=== PATIENT | male | born 1940 | race Caucasian/White ===

== ENCOUNTER 2019-06-03 05:09 | Emergency (ER) | payer MEDICARE ==
[~2019-06-03] VITALS: Ht 172.7 cm; Wt 77.0 kg
[2019-06-03] MEDS ORDERED: ACETAMINOPHEN 325MG TABLET PO ONE (06:45)
[2019-06-03 07:11] VITALS: BP 165/101
== END 2019-06-03 07:12 | disposition home or self-care (01) ==
LOC: ER 05:09
DX: M54.5 Low back pain (principal); M79.601 Pain in right arm; V44.5XXA Car driver injured in collision with heavy transport vehicle or bus in traffic accident, initial encounter; Y93.89 Activity, other specified; Y92.410 Unspecified street and highway as the place of occurrence of the external cause; R03.0 Elevated blood-pressure reading, without diagnosis of hypertension
CPT/HCPCS: 99283

== ENCOUNTER 2020-10-24 03:44 | Inpatient (IN) | payer MEDICARE, MEDICAID ==
[2020-10-24] VITALS (47 sets, daily range): BP systolic 77–134; BP diastolic 54–102
[~2020-10-24] VITALS: Ht 154.9 cm; Wt 73.1 kg
[2020-10-24] MEDS ORDERED: MORPHINE SULFATE 4 MG/ML CPJ (NOT FOR IM USE) IV STA (05:02)
[2020-10-24] MEDS ORDERED: ONDANSETRON HCL 4MG/2ML INJ IV STA (05:02)
[2020-10-24] MEDS ORDERED: PIPERACILLIN/TAZ 3.375G PREMIX 50 ML IV ONE (05:30)
[2020-10-24] MEDS ORDERED: LORAZEPAM 2MG/ML CPJ IV ONE (05:30)
[2020-10-24] MEDS ORDERED: VANCOMYCIN 1 G PREMIX 200 ML IV ONE (05:30)
[2020-10-24] MEDS ORDERED: SODIUM CHLORIDE 0.9% 1000ML BAG (SEPSIS BOLUS) IV ONE (05:30)
[2020-10-24 05:37] LABS: HEMATOCRIT. 42.1 % (42.0-52.0); MEAN CORPUSCULAR HEMOGLOBIN 29.5 pg (28.0-32.0); MEAN CORPUSCULAR VOLUME 88.9 fL (80.0-94.0); MEAN PLATELET VOLUME 7.5 fl (7.4-10.4); PLATELET 176 x1000/uL (130-400); RED BLOOD CELL COUNT 4.74 mill/uL (4.7-6.1); RED CELL DISTRIBUTION WIDTH 14.3 % (11.6-14.6)
[2020-10-24 05:47] LABS: CHLORIDE 104 mEq/L (98-107)
[2020-10-24 05:52] LABS: INR 1.2; PROTHROMBIN TIME 12.9 sec (9.6-11.0)
[2020-10-24 06:35] LABS: NUCLEATED RED BLOOD CELLS 1 /100 WBC
[2020-10-24] MEDS ORDERED: IOHEXOL-300 100 ML BOTTLE ONE (06:35)
[2020-10-24 06:36] LABS: PLATELET ESTIMATE NORMAL
[2020-10-24] MEDS ORDERED: POTASSIUM CHLORIDE INJ 40 MEQ in DEXT 5% WATER 250 ML IV SCH (07:00)
[2020-10-24 08:02] LABS: CLARITY URINE CLEAR (CLEAR); COLOR URINE YELLOW (YELLOW); KETONES URINE NEGATIVE (NEGATIVE); LEUKOCYTE ESTERASE URINE 2+ (NEGATIVE); NITRITE URINE NEGATIVE (NEGATIVE); OCCULT BLOOD URINE 2+ (NEGATIVE); PH URINE 5.5 (4.5-8.0); PROTEIN URINE 1+ (NEGATIVE); UROBILINOGEN URINE 0.2 E.U./dL (0.2-1.0)
[2020-10-24 08:33] LABS: *BARBITURATES SCREEN URINE NEGATIVE (NEGATIVE); *BENZODIAZEPINES SCREEN URINE NEGATIVE (NEGATIVE); *COCAINE SCREEN URINE NEGATIVE (NEGATIVE); CANNABINOID URINE SCREEN NEGATIVE (NEGATIVE); METHADONE URINE SCREEN NEGATIVE (NEGATIVE); OPIATES URINE SCREEN NEGATIVE (NEGATIVE); PHENCYCLIDINE URINE SCREEN NEGATIVE (NEGATIVE)
[2020-10-24 08:36] LABS: *AMPHETAMINES SCREEN URINE NEGATIVE (NEGATIVE)
[2020-10-24] MEDS ORDERED: NOREPINEPHRINE 8 MG in SODIUM CHLORIDE 0.9% 242 ML IV PRN ×2 (09:00→09:15)
[2020-10-24] MEDS ORDERED: LIDOCAINE HCL 1% 20ML VIAL (Pyxis) INJ ONE (11:06)
[2020-10-24] MEDS ORDERED: CEFTRIAXONE 1 G PREMIX 50 ML IV SCH (12:00)
[2020-10-24] MEDS ORDERED: NOREPINEPHRINE 8 MG in DEXT 5% WATER 242 ML IV PRN (12:30)
[2020-10-24] MEDS ORDERED: CEFTRIAXONE 1,000 MG in DEXTROSE 5% WATER 50 ML IV SCH (12:46)
[2020-10-24] MEDS: CEFTRIAXONE 1,000 MG in DEXTROSE 5% WATER 50 ML IV SCH (13:42)
[2020-10-24] MEDS: SODIUM CHLORIDE 0.9% 1,000 ML IV SCH (13:42)
[2020-10-24] MEDS: NOREPINEPHRINE 8 MG in DEXT 5% WATER 242 ML IV PRN ×2 (14:24→23:53)
[2020-10-24] MEDS ORDERED: LORAZEPAM 2MG/ML CPJ IV NR (22:15)
[2020-10-24] MEDS ORDERED: HALOPERIDOL LACTATE 5MG/ML VIAL IM NR (22:15)
[2020-10-25] VITALS (98 sets, daily range): BP systolic 90–163; BP diastolic 20–98
[2020-10-25] MEDS: MIDODRINE HCL 5MG TABLET PO SCH ×4 (00:03→17:08)
[2020-10-25] MEDS: SODIUM CHLORIDE 0.9% 1,000 ML IV SCH ×2 (01:08→14:10)
[2020-10-25] MEDS: NOREPINEPHRINE 8 MG in DEXT 5% WATER 242 ML IV PRN ×4 (04:59→12:00)
[2020-10-25] MEDS ORDERED: LORAZEPAM 2MG/ML CPJ IV PRN (08:00)
[2020-10-25 09:53] LABS: HEMATOCRIT. 38.9 % (42.0-52.0); HEMOGLOBIN. 12.8 g/dL (14.0-18.0); MEAN CORPUSCULAR HEMOGLOBIN 29.6 pg (28.0-32.0); MEAN CORPUSCULAR VOLUME 90.4 fL (80.0-94.0); MEAN PLATELET VOLUME 8.9 fl (7.4-10.4); PLATELET 75 x1000/uL (130-400); RED BLOOD CELL COUNT 4.31 mill/uL (4.7-6.1); RED CELL DISTRIBUTION WIDTH 15.2 % (11.6-14.6)
[2020-10-25 11:11] LABS: PLATELET ESTIMATE DECREASED
[2020-10-25 13:06] LABS: HIV SCREEN 4G Non Reactive (Non Reactive)
[2020-10-25 13:45] LABS: BG BASE EXCESS -8.5 mmol/L (-2.0-2.0); BG CARBOXYHEMOGLOBIN 0.3 % (0.5-1.5); BG DEOXYHEMOGLOBIN 6.9 % (0.0-5.0); BG FRACTION INSPIRED OXYGEN 40; BG HCO3 ACT 15.2 mmol/L (22.0-26.0); BG OXYGEN SATURATION 93.1 % (92.0-98.5); BG OXYHEMOGLOBIN 92.8 % (94.0-97.0); BG PCO2 27.1 mmHg (35.0-45.0); BG PH 7.368 (7.350-7.450); BG PO2 63.3 mmHg (75.0-100.0); BG SAMPLE SITE RIGHT RADIAL; BG TOTAL HEMOGLOBIN 13.3 g/dL (12.0-18.0); BG VENT MODE NASAL CANNULA
[2020-10-25] MEDS: LORAZEPAM 2MG/ML CPJ IV PRN ×2 (14:34→20:15)
[2020-10-25] MEDS: CEFTRIAXONE 1,000 MG in DEXTROSE 5% WATER 50 ML IV SCH (14:34)
[2020-10-25] MEDS ORDERED: MORPHINE SULFATE 2 MG/ML CPJ (NOT FOR IM USE) IV PRN (22:45)
[2020-10-25] MEDS: ACETAMINOPHEN 325MG TABLET PO PRN (22:55)
[2020-10-26] VITALS (96 sets, daily range): BP systolic 80–180; BP diastolic 53–165
[2020-10-26] MEDS: NOREPINEPHRINE 8 MG in DEXT 5% WATER 242 ML IV PRN (00:38)
[2020-10-26] MEDS: LORAZEPAM 2MG/ML CPJ IV PRN (01:56)
[2020-10-26] MEDS: MORPHINE SULFATE 2 MG/ML CPJ (NOT FOR IM USE) IV PRN ×2 (04:50→11:33)
[2020-10-26] MEDS: SODIUM CHLORIDE 0.9% 1,000 ML IV SCH (04:50)
[2020-10-26 05:48] LABS: HEMATOCRIT. 35.1 % (42.0-52.0); HEMOGLOBIN. 11.4 g/dL (14.0-18.0); MEAN CORPUSCULAR VOLUME 89.5 fL (80.0-94.0); MEAN PLATELET VOLUME 9.4 fl (7.4-10.4); PLATELET 59 x1000/uL (130-400); RED BLOOD CELL COUNT 3.92 mill/uL (4.7-6.1); RED CELL DISTRIBUTION WIDTH 15.2 % (11.6-14.6)
[2020-10-26] MEDS: MIDODRINE HCL 5MG TABLET PO SCH ×3 (09:45→17:06)
[2020-10-26] MEDS ORDERED: FUROSEMIDE 20MG/2ML VIAL IVP SCH (10:45)
[2020-10-26 11:30] LABS: PLATELET ESTIMATE MARKEDLY DECREASED
[2020-10-26] MEDS: IPRATROPIUM/ALBUTEROL 0.5-3(2.5)MG/3ML NEB HHN PRN ×2 (12:24→21:14)
[2020-10-26 13:51] LABS: BG BASE EXCESS -6.8 mmol/L (-2.0-2.0); BG CARBOXYHEMOGLOBIN 0.3 % (0.5-1.5); BG DEOXYHEMOGLOBIN 1.8 % (0.0-5.0); BG FRACTION INSPIRED OXYGEN 40; BG HCO3 ACT 18.9 mmol/L (22.0-26.0); BG METHEMOGLOBIN 0.1 % (0.0-1.5); BG OXYGEN SATURATION 98.2 % (92.0-98.5); BG OXYHEMOGLOBIN 97.8 % (94.0-97.0); BG PCO2 38.6 mmHg (35.0-45.0); BG PH 7.308 (7.350-7.450); BG PO2 114.2 mmHg (75.0-100.0); BG SAMPLE SITE LEFT RADIAL; BG TOTAL HEMOGLOBIN 12.3 g/dL (12.0-18.0)
[2020-10-26] MEDS: CEFTRIAXONE 1,000 MG in DEXTROSE 5% WATER 50 ML IV SCH (14:18)
[2020-10-27] VITALS (114 sets, daily range): BP systolic 90–188; BP diastolic 54–145
[2020-10-27] MEDS: LORAZEPAM 2MG/ML CPJ IV PRN ×3 (01:52→17:10)
[2020-10-27] MEDS: IPRATROPIUM/ALBUTEROL 0.5-3(2.5)MG/3ML NEB HHN PRN (04:40)
[2020-10-27 05:40] LABS: HEMATOCRIT. 36.7 % (42.0-52.0); MEAN CORPUSCULAR HEMOGLOBIN 29.3 pg (28.0-32.0); MEAN CORPUSCULAR VOLUME 89.6 fL (80.0-94.0); MEAN PLATELET VOLUME 9.5 fl (7.4-10.4); PLATELET 65 x1000/uL (130-400); RED BLOOD CELL COUNT 4.09 mill/uL (4.7-6.1); RED CELL DISTRIBUTION WIDTH 15.3 % (11.6-14.6)
[2020-10-27 07:59] LABS: PLATELET ESTIMATE DECREASED
[2020-10-27] MEDS: MIDODRINE HCL 5MG TABLET PO SCH ×3 (09:00→17:00)
[2020-10-27] MEDS: CLONIDINE 0.1MG TABLET PO PRN (13:07)
[2020-10-27] MEDS: IPRATROPIUM/ALBUTEROL 0.5-3(2.5)MG/3ML NEB HHN SCH ×2 (13:25→20:44)
[2020-10-27] MEDS: CEFTRIAXONE 1,000 MG in DEXTROSE 5% WATER 50 ML IV SCH (15:18)
[2020-10-27] MEDS: MORPHINE SULFATE 2 MG/ML CPJ (NOT FOR IM USE) IV PRN (19:10)
[2020-10-28] VITALS (84 sets, daily range): BP systolic 102–185; BP diastolic 59–123
[2020-10-28] MEDS: CLONIDINE 0.1MG TABLET PO PRN ×3 (00:31→18:20)
[2020-10-28] MEDS: IPRATROPIUM/ALBUTEROL 0.5-3(2.5)MG/3ML NEB HHN SCH ×6 (00:41→20:27)
[2020-10-28] MEDS: LORAZEPAM 2MG/ML CPJ IV PRN ×4 (02:04→23:05)
[2020-10-28 05:30] LABS: BASOPHILS % 0.6 % (0.0-2.0); EOSINOPHILS % 0.9 % (0.0-5.0); HEMATOCRIT. 38.2 % (42.0-52.0); HEMOGLOBIN. 12.5 g/dL (14.0-18.0); LYMPHOCYTES % 12.2 % (20.0-50.0); MEAN CORPUSCULAR HEMOGLOBIN 29.2 pg (28.0-32.0); MEAN CORPUSCULAR VOLUME 89.2 fL (80.0-94.0); MEAN PLATELET VOLUME 9.2 fl (7.4-10.4); MONOCYTES % 6.9 % (2.0-8.0); NEUTROPHILS % 79.4 % (40.0-76.0); PLATELET 62 x1000/uL (130-400); RED BLOOD CELL COUNT 4.29 mill/uL (4.7-6.1)
[2020-10-28 05:40] LABS: CHLORIDE 116 mEq/L (98-107)
[2020-10-28] MEDS: MIDODRINE HCL 5MG TABLET PO SCH ×3 (09:00→17:00)
[2020-10-28] MEDS ORDERED: FUROSEMIDE 40MG/4ML VIAL IVP NR (12:00)
[2020-10-28] MEDS: METOPROLOL TARTRATE 25MG TABLET PO SCH ×2 (12:10→20:49)
[2020-10-28] MEDS: CEFTRIAXONE 1,000 MG in DEXTROSE 5% WATER 50 ML IV SCH (14:38)
[2020-10-28] MEDS: POTASSIUM CHLORIDE 20MEQ TABLET SR PO SCH (23:04)
[2020-10-29] VITALS (24 sets, daily range): BP systolic 105–171; BP diastolic 60–124
[2020-10-29] MEDS: IPRATROPIUM/ALBUTEROL 0.5-3(2.5)MG/3ML NEB HHN SCH ×7 (00:29→21:08)
[2020-10-29 05:29] LABS: HEMATOCRIT. 37.7 % (42.0-52.0); HEMOGLOBIN. 12.2 g/dL (14.0-18.0); MEAN CORPUSCULAR HEMOGLOBIN 28.9 pg (28.0-32.0); MEAN PLATELET VOLUME 9.8 fl (7.4-10.4); PLATELET 94 x1000/uL (130-400); RED BLOOD CELL COUNT 4.24 mill/uL (4.7-6.1); RED CELL DISTRIBUTION WIDTH 14.8 % (11.6-14.6)
[2020-10-29 05:35] LABS: CHLORIDE 112 mEq/L (98-107)
[2020-10-29 07:14] LABS: PLATELET ESTIMATE DECREASED
[2020-10-29] MEDS: MIDODRINE HCL 5MG TABLET PO SCH (09:00)
[2020-10-29] MEDS: CLONIDINE 0.1MG TABLET PO PRN ×2 (09:02→15:32)
[2020-10-29] MEDS: POTASSIUM CHLORIDE 20MEQ TABLET SR PO SCH (11:22)
[2020-10-29] MEDS: METOPROLOL TARTRATE 25MG TABLET PO SCH ×2 (11:24→20:43)
[2020-10-29] MEDS: CEFTRIAXONE 1,000 MG in DEXTROSE 5% WATER 50 ML IV SCH (15:32)
[2020-10-29] MEDS: DOCUSATE SODIUM SUGAR FREE 100MG/10ML UDC PO SCH (20:42)
[2020-10-29] MEDS: LORAZEPAM 2MG/ML CPJ IV PRN (20:42)
[2020-10-29] MEDS: ACETAMINOPHEN 325MG TABLET PO PRN (21:30)
[2020-10-30] VITALS (13 sets, daily range): BP systolic 88–190; BP diastolic 57–112
[2020-10-30] MEDS: IPRATROPIUM/ALBUTEROL 0.5-3(2.5)MG/3ML NEB HHN SCH ×5 (01:08→15:04)
[2020-10-30 05:34] LABS: CHLORIDE 114 mEq/L (98-107)
[2020-10-30] MEDS: LORAZEPAM 2MG/ML CPJ IV PRN ×3 (06:07→20:28)
[2020-10-30 06:20] LABS: BASOPHILS % 0.6 % (0.0-2.0); EOSINOPHILS % 2.3 % (0.0-5.0); HEMATOCRIT. 37.2 % (42.0-52.0); HEMOGLOBIN. 12.3 g/dL (14.0-18.0); LYMPHOCYTES % 16.2 % (20.0-50.0); MEAN CORPUSCULAR HEMOGLOBIN 29.4 pg (28.0-32.0); MEAN CORPUSCULAR VOLUME 89.3 fL (80.0-94.0); MEAN PLATELET VOLUME 9.8 fl (7.4-10.4); MONOCYTES % 9.5 % (2.0-8.0); NEUTROPHILS % 71.4 % (40.0-76.0); PLATELET 128 x1000/uL (130-400); RED BLOOD CELL COUNT 4.17 mill/uL (4.7-6.1); RED CELL DISTRIBUTION WIDTH 15.2 % (11.6-14.6)
[2020-10-30] MEDS: DOCUSATE SODIUM SUGAR FREE 100MG/10ML UDC PO SCH ×2 (09:00→20:00)
[2020-10-30] MEDS: METOPROLOL TARTRATE 25MG TABLET PO SCH ×2 (09:00→21:48)
[2020-10-30] MEDS ORDERED: POTASSIUM CHLORIDE INJ 40 MEQ in DEXT 5% WATER 500 ML IV NR (15:00)
[2020-10-30] MEDS: IPRATROPIUM BROMIDE (0.02%) 0.5MG/2.5ML NEB HHN SCH ×2 (20:39→23:54)
[2020-10-30] MEDS: ACETYLCYSTEINE 100MG/ML 10% VIAL 4ML INH SCH (20:40)
[2020-10-30] MEDS: ONDANSETRON HCL 4MG/2ML INJ IV PRN (21:54)
[2020-10-31] VITALS (17 sets, daily range): BP systolic 97–175; BP diastolic 60–160
[2020-10-31] MEDS: CEFTRIAXONE 1,000 MG in DEXTROSE 5% WATER 50 ML IV SCH ×2 (00:55→13:13)
[2020-10-31] MEDS: ACETAMINOPHEN 325MG TABLET PO PRN ×2 (01:07→16:53)
[2020-10-31] MEDS: IPRATROPIUM BROMIDE (0.02%) 0.5MG/2.5ML NEB HHN SCH ×5 (03:56→16:36)
[2020-10-31] MEDS: ACETYLCYSTEINE 100MG/ML 10% VIAL 4ML INH SCH ×3 (03:57→16:36)
[2020-10-31] MEDS: LORAZEPAM 2MG/ML CPJ IV PRN ×3 (05:32→18:22)
[2020-10-31 06:45] LABS: CHLORIDE 112 mEq/L (98-107)
[2020-10-31 06:55] LABS: BASOPHILS % 0.6 % (0.0-2.0); EOSINOPHILS % 2.5 % (0.0-5.0); HEMATOCRIT. 38.2 % (42.0-52.0); HEMOGLOBIN. 12.6 g/dL (14.0-18.0); LYMPHOCYTES % 15.5 % (20.0-50.0); MEAN PLATELET VOLUME 9.6 fl (7.4-10.4); MONOCYTES % 6.9 % (2.0-8.0); NEUTROPHILS % 74.5 % (40.0-76.0); PLATELET 183 x1000/uL (130-400); RED CELL DISTRIBUTION WIDTH 15.4 % (11.6-14.6)
[2020-10-31 07:24] LABS: BG BASE EXCESS 0.6 mmol/L (-2.0-2.0); BG CARBOXYHEMOGLOBIN 0.8 % (0.5-1.5); BG DEOXYHEMOGLOBIN 7.3 % (0.0-5.0); BG HCO3 ACT 23.8 mmol/L (22.0-26.0); BG METHEMOGLOBIN 0.1 % (0.0-1.5); BG OXYGEN SATURATION 92.6 % (92.0-98.5); BG OXYHEMOGLOBIN 91.8 % (94.0-97.0); BG PCO2 33.8 mmHg (35.0-45.0); BG PH 7.465 (7.350-7.450); BG PO2 61.9 mmHg (75.0-100.0); BG SAMPLE SITE RIGHT BRACHIAL; BG TOTAL HEMOGLOBIN 13.4 g/dL (12.0-18.0); BG VENT MODE NASAL CANNULA
[2020-10-31] MEDS: DOCUSATE SODIUM SUGAR FREE 100MG/10ML UDC PO SCH ×2 (09:00→16:52)
[2020-10-31] MEDS: ASPIRIN 81MG TABLET PO SCH (09:32)
[2020-10-31] MEDS: METOPROLOL TARTRATE 25MG TABLET PO SCH ×2 (09:33→21:00)
[2020-10-31] MEDS: ENOXAPARIN 40MG/0.4ML SYR SUBCUT SCH (16:52)
[2020-10-31] MEDS: IPRATROPIUM/ALBUTEROL 0.5-3(2.5)MG/3ML NEB HHN PRN (20:58)
[2020-11-01] VITALS (22 sets, daily range): BP systolic 113–192; BP diastolic 72–122
[2020-11-01] MEDS: IPRATROPIUM BROMIDE (0.02%) 0.5MG/2.5ML NEB HHN SCH ×6 (00:13→21:26)
[2020-11-01] MEDS: LORAZEPAM 2MG/ML CPJ IV PRN ×3 (04:32→22:47)
[2020-11-01] MEDS: ACETYLCYSTEINE 100MG/ML 10% VIAL 4ML INH SCH ×2 (07:59→15:42)
[2020-11-01] MEDS: ASPIRIN 81MG TABLET PO SCH (08:43)
[2020-11-01] MEDS: METOPROLOL TARTRATE 25MG TABLET PO SCH ×2 (08:44→22:48)
[2020-11-01] MEDS: DOCUSATE SODIUM SUGAR FREE 100MG/10ML UDC PO SCH ×2 (08:45→17:51)
[2020-11-01] MEDS: CEFTRIAXONE 1,000 MG in DEXTROSE 5% WATER 50 ML IV SCH (14:28)
[2020-11-01] MEDS: ENOXAPARIN 40MG/0.4ML SYR SUBCUT SCH (17:51)
[2020-11-02] VITALS (12 sets, daily range): BP systolic 106–159; BP diastolic 70–105
[2020-11-02] MEDS: ACETYLCYSTEINE 100MG/ML 10% VIAL 4ML INH SCH ×3 (00:49→15:50)
[2020-11-02] MEDS: IPRATROPIUM BROMIDE (0.02%) 0.5MG/2.5ML NEB HHN SCH ×6 (00:49→21:21)
[2020-11-02] MEDS: LORAZEPAM 2MG/ML CPJ IV PRN ×2 (05:20→18:08)
[2020-11-02] MEDS: DOCUSATE SODIUM SUGAR FREE 100MG/10ML UDC PO SCH ×2 (09:01→16:52)
[2020-11-02] MEDS: ASPIRIN 81MG TABLET PO SCH (09:02)
[2020-11-02] MEDS: METOPROLOL TARTRATE 25MG TABLET PO SCH ×2 (09:02→22:11)
[2020-11-02] MEDS: CEFTRIAXONE 1,000 MG in DEXTROSE 5% WATER 50 ML IV SCH (14:01)
[2020-11-02] MEDS: ENOXAPARIN 40MG/0.4ML SYR SUBCUT SCH (16:52)
[2020-11-03] VITALS (10 sets, daily range): BP systolic 117–178; BP diastolic 60–106
[2020-11-03] MEDS: IPRATROPIUM BROMIDE (0.02%) 0.5MG/2.5ML NEB HHN SCH ×6 (00:27→20:33)
[2020-11-03] MEDS: ACETYLCYSTEINE 100MG/ML 10% VIAL 4ML INH SCH ×3 (00:28→16:00)
[2020-11-03] MEDS: LORAZEPAM 2MG/ML CPJ IV PRN ×3 (01:52→21:05)
[2020-11-03 05:29] LABS: CHLORIDE 111 mEq/L (98-107)
[2020-11-03 06:15] LABS: BASOPHILS % 0.6 % (0.0-2.0); EOSINOPHILS % 0.7 % (0.0-5.0); HEMATOCRIT. 40.6 % (42.0-52.0); HEMOGLOBIN. 13.2 g/dL (14.0-18.0); LYMPHOCYTES % 20.1 % (20.0-50.0); MEAN CORPUSCULAR HEMOGLOBIN 29.6 pg (28.0-32.0); MEAN CORPUSCULAR VOLUME 91.3 fL (80.0-94.0); MEAN PLATELET VOLUME 9.9 fl (7.4-10.4); MONOCYTES % 7.1 % (2.0-8.0); NEUTROPHILS % 71.5 % (40.0-76.0); PLATELET 404 x1000/uL (130-400); RED BLOOD CELL COUNT 4.45 mill/uL (4.7-6.1); RED CELL DISTRIBUTION WIDTH 15.2 % (11.6-14.6)
[2020-11-03] MEDS: ACETAMINOPHEN 325MG TABLET PO PRN (07:56)
[2020-11-03] MEDS: ONDANSETRON HCL 4MG/2ML INJ IV PRN (07:56)
[2020-11-03] MEDS: DOCUSATE SODIUM SUGAR FREE 100MG/10ML UDC PO SCH ×2 (08:14→17:16)
[2020-11-03] MEDS: ASPIRIN 81MG TABLET PO SCH (08:14)
[2020-11-03] MEDS: METOPROLOL TARTRATE 25MG TABLET PO SCH ×2 (08:14→21:05)
[2020-11-03] MEDS: RISPERIDONE 0.5MG TABLET PO SCH (12:25)
[2020-11-03] MEDS: CEFTRIAXONE 1,000 MG in DEXTROSE 5% WATER 50 ML IV SCH (13:43)
[2020-11-03] MEDS: ENOXAPARIN 40MG/0.4ML SYR SUBCUT SCH (17:16)
[2020-11-04] VITALS: BP 130/91
[2020-11-04] MEDS: IPRATROPIUM BROMIDE (0.02%) 0.5MG/2.5ML NEB HHN SCH ×4 (00:18→21:23)
[2020-11-04] MEDS: ACETYLCYSTEINE 100MG/ML 10% VIAL 4ML INH SCH ×3 (00:18→16:42)
[2020-11-04 04:00] VITALS: BP 138/79
[2020-11-04 06:11] LABS: BASOPHILS % 0.8 % (0.0-2.0); EOSINOPHILS % 0.7 % (0.0-5.0); HEMATOCRIT. 40.1 % (42.0-52.0); HEMOGLOBIN. 12.9 g/dL (14.0-18.0); LYMPHOCYTES % 19.6 % (20.0-50.0); MEAN CORPUSCULAR HEMOGLOBIN 29.2 pg (28.0-32.0); MEAN CORPUSCULAR VOLUME 90.5 fL (80.0-94.0); MEAN PLATELET VOLUME 9.4 fl (7.4-10.4); MONOCYTES % 6.8 % (2.0-8.0); NEUTROPHILS % 72.1 % (40.0-76.0); PLATELET 482 x1000/uL (130-400); RED BLOOD CELL COUNT 4.43 mill/uL (4.7-6.1); RED CELL DISTRIBUTION WIDTH 15.1 % (11.6-14.6)
[2020-11-04 06:20] LABS: CHLORIDE 110 mEq/L (98-107)
[2020-11-04 08:00] VITALS: BP 140/92
[2020-11-04] MEDS: RISPERIDONE 0.5MG TABLET PO SCH (09:35)
[2020-11-04] MEDS: ASPIRIN 81MG TABLET PO SCH (09:37)
[2020-11-04] MEDS: METOPROLOL TARTRATE 25MG TABLET PO SCH ×2 (09:37→21:00)
[2020-11-04] MEDS: DOCUSATE SODIUM SUGAR FREE 100MG/10ML UDC PO SCH (09:37)
[2020-11-04 12:00] VITALS: BP 139/74
[2020-11-04] MEDS: IPRATROPIUM/ALBUTEROL 0.5-3(2.5)MG/3ML NEB HHN PRN ×2 (13:18→16:42)
[2020-11-04] MEDS: CEFTRIAXONE 1,000 MG in DEXTROSE 5% WATER 50 ML IV SCH (13:54)
[2020-11-04 16:00] VITALS: BP 140/88
[2020-11-04] MEDS: LORAZEPAM 2MG/ML CPJ IV PRN (17:12)
[2020-11-04] MEDS: ENOXAPARIN 40MG/0.4ML SYR SUBCUT SCH (17:13)
[2020-11-04 20:00] VITALS: BP 110/68
[2020-11-04] MEDS: ATORVASTATIN CALCIUM 40MG TABLET PO SCH (21:00)
[2020-11-05] VITALS: BP 135/78
[2020-11-05] MEDS: IPRATROPIUM BROMIDE (0.02%) 0.5MG/2.5ML NEB HHN SCH ×6 (00:50→20:49)
[2020-11-05 04:00] VITALS: BP 131/96
[2020-11-05 08:00] VITALS: BP 182/90
[2020-11-05] MEDS: ASPIRIN 81MG TABLET PO SCH (10:40)
[2020-11-05] MEDS: METOPROLOL TARTRATE 25MG TABLET PO SCH ×2 (10:41→21:26)
[2020-11-05] MEDS: RISPERIDONE 0.5MG TABLET PO SCH (10:41)
[2020-11-05] MEDS: DOCUSATE SODIUM SUGAR FREE 100MG/10ML UDC PO SCH ×2 (10:44→18:24)
[2020-11-05 12:00] VITALS: BP 152/84
[2020-11-05 12:51] LABS: BASOPHILS % 0.6 % (0.0-2.0); EOSINOPHILS % 0.9 % (0.0-5.0); HEMATOCRIT. 38.3 % (42.0-52.0); HEMOGLOBIN. 12.8 g/dL (14.0-18.0); LYMPHOCYTES % 14.7 % (20.0-50.0); MEAN CORPUSCULAR VOLUME 92.5 fL (80.0-94.0); MEAN PLATELET VOLUME 9.4 fl (7.4-10.4); MONOCYTES % 9.3 % (2.0-8.0); NEUTROPHILS % 74.5 % (40.0-76.0); PLATELET 451 x1000/uL (130-400); RED BLOOD CELL COUNT 4.14 mill/uL (4.7-6.1); RED CELL DISTRIBUTION WIDTH 14.9 % (11.6-14.6)
[2020-11-05 12:58] LABS: CHLORIDE 115 mEq/L (98-107)
[2020-11-05] MEDS: CEFTRIAXONE 1,000 MG in DEXTROSE 5% WATER 50 ML IV SCH (14:37)
[2020-11-05 16:00] VITALS: BP 101/61
[2020-11-05] MEDS: LORAZEPAM 2MG/ML CPJ IV PRN (16:22)
[2020-11-05] MEDS: ENOXAPARIN 40MG/0.4ML SYR SUBCUT SCH (18:24)
[2020-11-05 20:00] VITALS: BP 150/89
[2020-11-05] MEDS: ATORVASTATIN CALCIUM 40MG TABLET PO SCH (21:26)
[2020-11-06] VITALS: BP 157/94
[2020-11-06] MEDS: IPRATROPIUM BROMIDE (0.02%) 0.5MG/2.5ML NEB HHN SCH ×6 (00:13→21:07)
[2020-11-06 04:00] VITALS: BP 140/89
[2020-11-06] MEDS: LORAZEPAM 2MG/ML CPJ IV PRN ×3 (05:17→19:54)
[2020-11-06 08:00] VITALS: BP 160/100
[2020-11-06 09:00] LABS: BASOPHILS % 0.6 % (0.0-2.0); EOSINOPHILS % 0.2 % (0.0-5.0); HEMATOCRIT. 41.6 % (42.0-52.0); HEMOGLOBIN. 13.7 g/dL (14.0-18.0); LYMPHOCYTES % 14.3 % (20.0-50.0); MEAN CORPUSCULAR HEMOGLOBIN 30.4 pg (28.0-32.0); MEAN PLATELET VOLUME 9.4 fl (7.4-10.4); MONOCYTES % 9.1 % (2.0-8.0); NEUTROPHILS % 75.8 % (40.0-76.0); PLATELET 591 x1000/uL (130-400); RED BLOOD CELL COUNT 4.52 mill/uL (4.7-6.1); RED CELL DISTRIBUTION WIDTH 14.7 % (11.6-14.6)
[2020-11-06 09:10] LABS: CHLORIDE 116 mEq/L (98-107)
[2020-11-06] MEDS: DOCUSATE SODIUM SUGAR FREE 100MG/10ML UDC PO SCH ×3 (09:39→18:35)
[2020-11-06] MEDS: METOPROLOL TARTRATE 25MG TABLET PO SCH ×2 (09:40→21:07)
[2020-11-06] MEDS: CLONIDINE 0.1MG TABLET PO PRN (09:40)
[2020-11-06] MEDS: ASPIRIN 81MG TABLET PO SCH (09:40)
[2020-11-06] MEDS: RISPERIDONE 0.5MG TABLET PO SCH (09:40)
[2020-11-06] MEDS: ACETAMINOPHEN 325MG TABLET PO PRN (09:41)
[2020-11-06 12:00] VITALS: BP 150/97
[2020-11-06] MEDS: CEFTRIAXONE 1,000 MG in DEXTROSE 5% WATER 50 ML IV SCH (13:36)
[2020-11-06 16:00] VITALS: BP 119/76
[2020-11-06] MEDS: RISPERIDONE 1MG TABLET PO SCH (18:25)
[2020-11-06] MEDS: ENOXAPARIN 40MG/0.4ML SYR SUBCUT SCH (18:25)
[2020-11-06 20:00] VITALS: BP 152/107
[2020-11-06 20:27] LABS: CLARITY URINE TURBID (CLEAR); COLOR URINE DARK YELLOW (YELLOW); KETONES URINE NEGATIVE (NEGATIVE); LEUKOCYTE ESTERASE URINE 1+ (NEGATIVE); NITRITE URINE NEGATIVE (NEGATIVE); OCCULT BLOOD URINE 3+ (NEGATIVE); PROTEIN URINE 4+ (NEGATIVE); SPECIFIC GRAVITY URINE 1.024 (1.005-1.030); UROBILINOGEN URINE 0.2 E.U./dL (0.2-1.0)
[2020-11-06] MEDS: ATORVASTATIN CALCIUM 40MG TABLET PO SCH (21:07)
[2020-11-07] VITALS: BP 134/88
[2020-11-07] MEDS: IPRATROPIUM BROMIDE (0.02%) 0.5MG/2.5ML NEB HHN SCH ×5 (00:12→20:27)
[2020-11-07] MEDS: LORAZEPAM 2MG/ML CPJ IV PRN ×2 (01:52→19:32)
[2020-11-07 04:00] VITALS: BP 123/83
[2020-11-07] MEDS: IPRATROPIUM/ALBUTEROL 0.5-3(2.5)MG/3ML NEB HHN PRN (04:05)
[2020-11-07 08:00] VITALS: BP 162/107
[2020-11-07 08:16] LABS: BASOPHILS % 0.7 % (0.0-2.0); EOSINOPHILS % 0.1 % (0.0-5.0); HEMATOCRIT. 40.6 % (42.0-52.0); HEMOGLOBIN. 13.6 g/dL (14.0-18.0); LYMPHOCYTES % 10.8 % (20.0-50.0); MEAN CORPUSCULAR HEMOGLOBIN 30.7 pg (28.0-32.0); MEAN CORPUSCULAR VOLUME 91.8 fL (80.0-94.0); MEAN PLATELET VOLUME 9.9 fl (7.4-10.4); MONOCYTES % 7.2 % (2.0-8.0); NEUTROPHILS % 81.2 % (40.0-76.0); PLATELET 525 x1000/uL (130-400); RED BLOOD CELL COUNT 4.42 mill/uL (4.7-6.1); RED CELL DISTRIBUTION WIDTH 14.9 % (11.6-14.6)
[2020-11-07] MEDS: DOCUSATE SODIUM SUGAR FREE 100MG/10ML UDC PO SCH ×3 (08:32→17:00)
[2020-11-07] MEDS: METOPROLOL TARTRATE 25MG TABLET PO SCH ×3 (08:33→20:35)
[2020-11-07] MEDS: RISPERIDONE 1MG TABLET PO SCH ×3 (08:33→17:00)
[2020-11-07] MEDS: ASPIRIN 81MG TABLET PO SCH ×2 (08:33→09:00)
[2020-11-07] MEDS ORDERED: ACETAMINOPHEN 650MG SUPP PR PRN (11:15)
[2020-11-07] MEDS ORDERED: SODIUM CHLORIDE 0.9% 1,000 ML IV SCH (11:15)
[2020-11-07 12:00] VITALS: BP 146/101
[2020-11-07 12:12] LABS: BASOPHILS % 0.3 % (0.0-2.0); HEMATOCRIT. 41.7 % (42.0-52.0); HEMOGLOBIN. 13.8 g/dL (14.0-18.0); LYMPHOCYTES % 8.6 % (20.0-50.0); MEAN CORPUSCULAR HEMOGLOBIN 30.6 pg (28.0-32.0); MEAN CORPUSCULAR VOLUME 92.2 fL (80.0-94.0); MEAN PLATELET VOLUME 9.2 fl (7.4-10.4); MONOCYTES % 7.3 % (2.0-8.0); NEUTROPHILS % 83.8 % (40.0-76.0); PLATELET 575 x1000/uL (130-400); RED BLOOD CELL COUNT 4.52 mill/uL (4.7-6.1); RED CELL DISTRIBUTION WIDTH 15.2 % (11.6-14.6)
[2020-11-07] MEDS ORDERED: DEXT 5%/0.45% NACL 1000ML 500 ML IV SCH (12:30)
[2020-11-07] MEDS: DEXT 5%/0.45% NACL 1000ML 1,000 ML IV SCH (13:25)
[2020-11-07] MEDS: PIPERACILLIN/TAZOBACTAM 2.25 G in DEXTROSE 5% WATER 50 ML IV SCH ×3 (13:26→23:08)
[2020-11-07 15:59] VITALS: BP 123/73
[2020-11-07] MEDS: ENOXAPARIN 40MG/0.4ML SYR SUBCUT SCH (17:00)
[2020-11-07 20:34] VITALS: BP 122/81
[2020-11-07] MEDS: ATORVASTATIN CALCIUM 40MG TABLET PO SCH (20:35)
[2020-11-07] MEDS ORDERED: PIPERACILLIN/TAZOBACTAM 3.375 G/VIAL IV SCH (21:00)
[2020-11-08] VITALS: BP 126/94
[2020-11-08] MEDS: IPRATROPIUM BROMIDE (0.02%) 0.5MG/2.5ML NEB HHN SCH ×6 (00:05→20:50)
[2020-11-08] MEDS: DEXT 5%/0.45% NACL 1000ML 1,000 ML IV SCH ×2 (01:13→16:08)
[2020-11-08 04:50] VITALS: BP 145/84
[2020-11-08] MEDS: LORAZEPAM 2MG/ML CPJ IV PRN (04:51)
[2020-11-08] MEDS: PIPERACILLIN/TAZOBACTAM 2.25 G in DEXTROSE 5% WATER 50 ML IV SCH ×3 (05:00→17:48)
[2020-11-08 07:09] LABS: BASOPHILS % 0.6 % (0.0-2.0); EOSINOPHILS % 0.7 % (0.0-5.0); LYMPHOCYTES % 13.2 % (20.0-50.0); MEAN CORPUSCULAR HEMOGLOBIN 30.7 pg (28.0-32.0); MEAN CORPUSCULAR VOLUME 92.5 fL (80.0-94.0); MEAN PLATELET VOLUME 9.5 fl (7.4-10.4); MONOCYTES % 6.3 % (2.0-8.0); NEUTROPHILS % 79.2 % (40.0-76.0); PLATELET 468 x1000/uL (130-400); RED BLOOD CELL COUNT 4.22 mill/uL (4.7-6.1); RED CELL DISTRIBUTION WIDTH 15.1 % (11.6-14.6)
[2020-11-08 07:52] LABS: INR 1.2; PROTHROMBIN TIME 12.7 sec (9.6-11.0)
[2020-11-08 08:00] VITALS: BP 134/75
[2020-11-08] MEDS: METOPROLOL TARTRATE 25MG TABLET PO SCH ×2 (09:00→23:06)
[2020-11-08] MEDS: DOCUSATE SODIUM SUGAR FREE 100MG/10ML UDC PO SCH ×2 (09:00→17:45)
[2020-11-08] MEDS: RISPERIDONE 1MG TABLET PO SCH ×2 (09:00→17:44)
[2020-11-08 12:00] VITALS: BP 124/90
[2020-11-08] MEDS ORDERED: FENTANYL CITRATE/PF 50MCG/ML 2ML VIAL ONE (12:05)
[2020-11-08] MEDS ORDERED: MIDAZOLAM HCL 5 MG/5 ML VIAL IV PRN (12:05)
[2020-11-08] MEDS ORDERED: MIDAZOLAM HCL 5 MG/5 ML VIAL ONE (12:05)
[2020-11-08 16:00] VITALS: BP 144/86
[2020-11-08 20:00] VITALS: BP 127/91
[2020-11-08] MEDS: ATORVASTATIN CALCIUM 40MG TABLET PO SCH (23:07)
[2020-11-09 00:12] VITALS: BP 119/95
[2020-11-09] MEDS: IPRATROPIUM BROMIDE (0.02%) 0.5MG/2.5ML NEB HHN SCH ×3 (00:22→07:41)
[2020-11-09] MEDS: PIPERACILLIN/TAZOBACTAM 2.25 G in DEXTROSE 5% WATER 50 ML IV SCH ×5 (03:12→23:23)
[2020-11-09 04:00] VITALS: BP 128/81
[2020-11-09 06:30] LABS: EOSINOPHILS % 1.2 % (0.0-5.0); HEMATOCRIT. 40.8 % (42.0-52.0); HEMOGLOBIN. 13.1 g/dL (14.0-18.0); LYMPHOCYTES % 14.8 % (20.0-50.0); MEAN CORPUSCULAR HEMOGLOBIN 30.3 pg (28.0-32.0); MEAN CORPUSCULAR VOLUME 94.1 fL (80.0-94.0); MEAN PLATELET VOLUME 9.7 fl (7.4-10.4); MONOCYTES % 7.2 % (2.0-8.0); NEUTROPHILS % 75.8 % (40.0-76.0); PLATELET 384 x1000/uL (130-400); RED BLOOD CELL COUNT 4.33 mill/uL (4.7-6.1); RED CELL DISTRIBUTION WIDTH 14.8 % (11.6-14.6)
[2020-11-09 08:00] VITALS: BP 115/70
[2020-11-09] MEDS: DEXT 5%/0.45% NACL 1000ML 1,000 ML IV SCH ×2 (09:21→18:19)
[2020-11-09] MEDS: RISPERIDONE 1MG TABLET PO SCH ×2 (09:21→18:18)
[2020-11-09] MEDS: METOPROLOL TARTRATE 25MG TABLET PO SCH ×2 (09:21→20:37)
[2020-11-09] MEDS: DOCUSATE SODIUM SUGAR FREE 100MG/10ML UDC PO SCH ×2 (09:21→18:18)
[2020-11-09 12:00] VITALS: BP 145/78
[2020-11-09 16:00] VITALS: BP 150/81
[2020-11-09 20:00] VITALS: BP 147/83
[2020-11-09] MEDS: ATORVASTATIN CALCIUM 40MG TABLET PO SCH (20:36)
[2020-11-10] VITALS: BP 150/68
[2020-11-10 04:00] VITALS: BP 152/71
[2020-11-10] MEDS: PIPERACILLIN/TAZOBACTAM 2.25 G in DEXTROSE 5% WATER 50 ML IV SCH ×2 (05:01→12:29)
[2020-11-10 05:54] LABS: BASOPHILS % 0.9 % (0.0-2.0); EOSINOPHILS % 2.5 % (0.0-5.0); HEMATOCRIT. 36.7 % (42.0-52.0); HEMOGLOBIN. 12.1 g/dL (14.0-18.0); LYMPHOCYTES % 17.5 % (20.0-50.0); MEAN CORPUSCULAR HEMOGLOBIN 30.4 pg (28.0-32.0); MEAN CORPUSCULAR VOLUME 91.7 fL (80.0-94.0); MEAN PLATELET VOLUME 9.8 fl (7.4-10.4); MONOCYTES % 7.7 % (2.0-8.0); NEUTROPHILS % 71.4 % (40.0-76.0); PLATELET 332 x1000/uL (130-400); RED CELL DISTRIBUTION WIDTH 14.9 % (11.6-14.6)
[2020-11-10 05:56] LABS: CHLORIDE 123 mEq/L (98-107)
[2020-11-10 08:00] VITALS: BP 143/84
[2020-11-10] MEDS ORDERED: POTASSIUM CHLORIDE 20MEQ TABLET SR PO SCH (09:00)
[2020-11-10] MEDS: DOCUSATE SODIUM SUGAR FREE 100MG/10ML UDC PO SCH (09:46)
[2020-11-10] MEDS: METOPROLOL TARTRATE 25MG TABLET PO SCH (09:47)
[2020-11-10] MEDS: DEXT 5%/0.45% NACL 1000ML 1,000 ML IV SCH (09:47)
[2020-11-10] MEDS: RISPERIDONE 1MG TABLET PO SCH (09:47)
[2020-11-10 12:00] VITALS: BP 142/77
[2020-11-10 12:20] VITALS: BP 142/77
== END 2020-11-10 15:10 | DRG 871 ==
LOC: ER 03:44 → CVICU 07:15 → ENRESERV 08:31 → EDBEDREQSVC 09:52 → ENRESERV 11:06 → 5EST 10-29 08:40 → 5WST 11-03 15:03
PROVIDERS: ADMIT Internal Medicine; ATTEND Internal Medicine
PROC: 05HM33Z Insertion of Infusion Device into Right Internal Jugular Vein, Percutaneous Approach (ICD-10-PCS; principal; 2020-10-24)
PROC: B543ZZA Ultrasonography of Right Jugular Veins, Guidance (ICD-10-PCS; 2020-10-24)
PROC: 4A10X4Z Monitoring of Central Nervous Electrical Activity, External Approach (ICD-10-PCS; 2020-10-24)
PROC: 0DH63UZ Insertion of Feeding Device into Stomach, Percutaneous Approach (ICD-10-PCS; 2020-11-08)
DX: A41.51 Sepsis due to Escherichia coli [E. coli] (principal); R65.21 Severe sepsis with septic shock; J69.0 Pneumonitis due to inhalation of food and vomit; J96.01 Acute respiratory failure with hypoxia; N17.0 Acute kidney failure with tubular necrosis; G92 Toxic encephalopathy; I63.9 Cerebral infarction, unspecified; E87.2 Acidosis; N13.8 Other obstructive and reflux uropathy; E46 Unspecified protein-calorie malnutrition; E87.0 Hyperosmolality and hypernatremia; N13.6 Pyonephrosis; E87.6 Hypokalemia; N40.1 Benign prostatic hyperplasia with lower urinary tract symptoms; D63.8 Anemia in other chronic diseases classified elsewhere; D69.6 Thrombocytopenia, unspecified; E11.9 Type 2 diabetes mellitus without complications; E78.00 Pure hypercholesterolemia, unspecified; E78.5 Hyperlipidemia, unspecified; E87.70 Fluid overload, unspecified; R13.12 Dysphagia, oropharyngeal phase; N32.89 Other specified disorders of bladder; N32.0 Bladder-neck obstruction; K76.0 Fatty (change of) liver, not elsewhere classified; K29.70 Gastritis, unspecified, without bleeding; R62.7 Adult failure to thrive; Z20.822 Contact with and (suspected) exposure to COVID-19; I10 Essential (primary) hypertension; Z93.1 Gastrostomy status; Z87.442 Personal history of urinary calculi; Z87.440 Personal history of urinary (tract) infections; Z68.30 Body mass index [BMI] 30.0-30.9, adult; Z79.899 Other long term (current) drug therapy; Z78.1 Physical restraint status; D72.819 Decreased white blood cell count, unspecified
CPT/HCPCS: 36415; 36600; 70551; 71045; 74177; 76700; 76937; 80048; 80053; 80061; 80305; 81003; 82140; 82375; 82805; 82962; 83605; 83880; 84145; 84484; 85025; 85379; 87077; 87186; 87389; 87426; 92610; 93005; 93306; 93880; 94640; 95816; 97162; 97166; 97530; 99291; C1725; J0696; J1630; J1650; J1940; J2060; J2250; J2270; J2405; J2543; J3010; J3370; J3480; J3490; J7030; J7050; J7060; J7608; Q9967; A4315